=== PATIENT | male | born 1975 | race African-American/Black ===

== ENCOUNTER 2024-03-01 15:36 | Inpatient (IN) | payer MEDICAID ==
[~2024-03-01] VITALS: Ht 180.3 cm; Wt 113.4 kg
[2024-03-01] MEDS ORDERED: HALOPERIDOL 5 MG TABLET PO PRN (15:45)
[2024-03-01 18:33] VITALS: BP 145/89; PULSE 87; RESP 18; TEMP 98; O2SAT 98
[2024-03-01 20:33] VITALS: BP 130/80; PULSE 90; RESP 18; TEMP 98.8; O2SAT 95
[2024-03-01] MEDS: PNEUMOCOCCAL VACCINE POLYVALENT 0.5 ML SYRINGE [PPSV23] IM. ONE (21:00)
[2024-03-01] MEDS: ATORVASTATIN CALCIUM 20 MG TABLET PO SCH (21:22)
[2024-03-02] MEDS: LORazepam 2 MG TABLET PO PRN (04:41)
[2024-03-02 09:01] VITALS: BP 117/63; PULSE 77; RESP 18; TEMP 97.6; O2SAT 95
[2024-03-02] MEDS: HYDROCHLOROTHIAZIDE 25 MG TABLET PO SCH (09:58)
[2024-03-02] MEDS: CLOPIDOGREL BISULFATE 75 MG TABLET PO SCH (09:58)
[2024-03-02 11:08] LABS: BASOPHILS % (AUTO) 0.8 % (0.0-2.0); EOSINOPHILS % (AUTO) 2.1 % (1.0-6.0); HEMATOCRIT 40.9 % (41-53); HEMOGLOBIN 13.4 g/dL (13.5-17.5); LYMPHOCYTES # (AUTO) 1.8 K/uL (1.0-4.8); LYMPHOCYTES % (AUTO) 29.1 % (22.0-44.0); MEAN CORPUSCULAR HEMOGLOBIN 29.9 pg (26.0-34.0); MEAN CORPUSCULAR HGB CONC 32.7 G/dL (31.0-37.0); MEAN CORPUSCULAR VOLUME 91 fL (80-100); MONOCYTES # (AUTO) 0.5 K/uL (0.1-1.0); MONOCYTES % (AUTO) 7.9 % (2.0-9.0); NEUTROPHILS # (AUTO) 3.7 K/uL (1.8-7.7); NEUTROPHILS % (AUTO) 60.1 % (40.0-70.0); PLATELET COUNT (AUTO) 193 K/uL (150-450); RED BLOOD CELL COUNT(AUTO) 4.47 MIL/uL (4.50-5.90); RED CELL DISTRIBUTION WIDTH 13.2 % (11.5-14.5); WHITE BLOOD COUNT (AUTO) 6.1 K/uL (4.5-11.0)
[2024-03-02 12:10] LABS: ALANINE AMINOTRANSFERASE 20 U/L (12-78); ALBUMIN 3.1 g/dL (3.4-5.0); ALKALINE PHOSPHATASE 64 U/L (46-116); ANION GAP 3 mmol/L (8-16); ASPARTATE AMINOTRANSFERASE 11 U/L (15-37); BILIRUBIN,TOTAL 0.4 mg/dL (0.1-1.0); CALCIUM, TOTAL 8.7 mg/dL (8.8-10.5); CARBON DIOXIDE 33 mmol/L (22-29); CHLORIDE 104 mmol/L (98-107); CHOL/HDL RATIO 3.4 (4.2-7.3); CHOLESTEROL 185 mg/dL (131-200); CREATININE 0.87 mg/dL (0.60-1.30); FREE T4 (FREE THYROXINE) 1.01 ng/dL (0.76-1.46); GLOMERULAR FILTR. RATE CALC > 60 mL/min (>60); GLUCOSE,RANDOM 104 mg/dL (70-110); HDL CHOLESTEROL 54 mg/dL (40-60); LDL CHOL (CALC.) 114 mg/dL (0-130); POTASSIUM 3.6 mmol/L (3.5-5.1); SODIUM SERUM 140 mmol/L (136-145); T4 (THYROXINE) 6.2 mcg/dL (4.7-13.3); THYROID STIMULATING HORMONE 1.16 uIU/mL (0.36-3.74); TOTAL PROTEIN, SERUM 6.7 g/dL (6.4-8.2); TRIGLYCERIDES 87 mg/dL (15-150); UREA NITROGEN, BLOOD 15 mg/dL (7-18)
[2024-03-02] MEDS ORDERED: MAGNESIUM HYDROXIDE SUSPENSION 30 ML UDCUP PO PRN (14:30)
[2024-03-02] MEDS ORDERED: CloNIDine HCL 0.1 MG TABLET PO PRN (14:30)
[2024-03-02] MEDS ORDERED: MAG HYDROX/ALUMINUM HYD/SIMETH ES 30 ML SUSPENSION UDCUP PO PRN (14:30)
[2024-03-02] MEDS ORDERED: ALBUTEROL SULFATE HFA 90 MCG/PUFF 8 GM INHALER IH PRN (14:30)
[2024-03-02] MEDS ORDERED: GuaiFENesin/D-METHORPHAN [SUGAR-FREE] 200-20MG/10 ML SYRUP UDCUP PO PRN (14:30)
[2024-03-02] MEDS ORDERED: IBUPROFEN 400 MG TABLET PO PRN (14:30)
[2024-03-02] MEDS ORDERED: LOPERAMIDE HCL 2 MG CAPSULE PO PRN (14:30)
[2024-03-02] MEDS ORDERED: NICOTINE 14 MG/24 HOUR PATCH TD PRN (14:30)
[2024-03-02] MEDS ORDERED: PETROLATUM,WHITE 28 GM JELLY TP PRN (14:30)
[2024-03-02] MEDS ORDERED: ONDANSETRON HCL 4 MG TABLET PO PRN (14:30)
[2024-03-02] MEDS: LURASIDONE HCL 80 MG TABLET PO SCH (16:22)
[2024-03-02] MEDS: HydrOXYzine PAMOATE 50 MG CAPSULE PO PRN (18:55)
[2024-03-02] MEDS: ACETAMINOPHEN 325 MG TABLET PO PRN (18:55)
[2024-03-02 20:15] VITALS: BP 119/66; PULSE 81; RESP 18; TEMP 98
[2024-03-02] MEDS: TraZODone HCL 100 MG TABLET PO SCH (21:02)
[2024-03-03 08:19] LABS: HEMOGLOBIN A1C 5.8 % (3.8-5.6)
[2024-03-03 08:55] LABS: CHOL/HDL RATIO 3.2 (4.2-7.3); THYROID STIMULATING HORMONE 1.18 uIU/mL (0.36-3.74)
[2024-03-03 09:04] VITALS: BP 109/70; PULSE 69; RESP 19; TEMP 97.6; O2SAT 97
[2024-03-03 20:00] VITALS: BP 110/61; PULSE 78; RESP 16; TEMP 97.9; O2SAT 96
[2024-03-04 08:25] LABS: APPEARANCE,URINE CLEAR (CLEAR); BILIRUBIN,URINE NEGATIVE (NEGATIVE); COLOR,URINE LIGHT YELLOW (YELLOW); GLUCOSE, URINE (UA) NEGATIVE (NEGATIVE); KETONES,URINE NEGATIVE (NEGATIVE); LEUKOCYTE ESTERASE ,URINE NEGATIVE (NEGATIVE); NITRATE,URINE NEGATIVE (NEGATIVE); OCCULT BLOOD,URINE NEGATIVE (NEGATIVE); PROTEIN,URINE NEGATIVE (NEGATIVE); SPECIFIC GRAVITIY, URINE 1.015 (1.003-1.030); UROBILINOGEN,URINE <=1.0 mg/dL (<=1.0)
[2024-03-04 08:32] LABS: ALCOHOL, URINE DRUG SCREEN NEGATIVE (NEGATIVE); AMPHET/METH SCREEN,URINE NEGATIVE (NEGATIVE); BARBITURATE SCREEN, URINE NEGATIVE (NEGATIVE); BENZODIAZEPINES SCREEN,URINE NEGATIVE (NEGATIVE); CANNABINOID SCREEN,URINE NEGATIVE (NEGATIVE); COCAINE SCREEN,URINE NEGATIVE (NEGATIVE); METHADONE SCREEN, URINE NEGATIVE (NEGATIVE); OPIATE SCREEN,URINE NEGATIVE (NEGATIVE); PHENCYCLIDINE SCREEN,URINE NEGATIVE (NEGATIVE)
[2024-03-04 09:07] VITALS: BP 106/55; PULSE 70; RESP 17; TEMP 97.8; O2SAT 95
[2024-03-04 09:36] VITALS: BP 115/72; PULSE 81
[2024-03-04 20:38] VITALS: BP 107/60; PULSE 73; RESP 18; TEMP 97.8; O2SAT 96
[2024-03-05 08:49] VITALS: BP 118/73; PULSE 78; RESP 18; TEMP 97.9; O2SAT 97
[2024-03-05 20:56] VITALS: BP 143/94; PULSE 75; RESP 16; TEMP 97.8; O2SAT 95
[2024-03-06] MEDS: ZOLPIDEM TARTRATE 10 MG TABLET PO PRN (02:23)
[2024-03-06 17:58] VITALS: BP 126/84; PULSE 78; RESP 18; TEMP 98; O2SAT 95
[2024-03-06 20:50] VITALS: BP 126/84; PULSE 70; RESP 16; TEMP 98.1; O2SAT 97
[2024-03-07 08:38] VITALS: BP 116/61; PULSE 80; RESP 18; TEMP 97.7; O2SAT 96
[2024-03-07 20:19] VITALS: BP 124/78; PULSE 74; RESP 20; TEMP 98.2; O2SAT 95
[2024-03-07 20:44] VITALS: RESP 20
[2024-03-07 23:08] VITALS: RESP 15
[2024-03-08 09:14] VITALS: BP 113/63; PULSE 70; RESP 17; TEMP 97.9; O2SAT 97
[2024-03-08 20:00] VITALS: BP 142/87; PULSE 79; RESP 16; TEMP 97.2; O2SAT 97
[2024-03-09 09:02] VITALS: BP 104/61; PULSE 80; RESP 18; TEMP 97.2; O2SAT 96
[2024-03-09 21:15] VITALS: BP 149/107; PULSE 92; RESP 18; TEMP 97.3; O2SAT 92
[2024-03-10] MEDS: DOCUSATE SODIUM 100 MG CAPSULE PO PRN (09:01)
[2024-03-10 09:31] VITALS: BP 140/91; PULSE 76; RESP 18; TEMP 96.7; O2SAT 95
[2024-03-10 20:50] VITALS: BP 138/91; PULSE 80; RESP 19; TEMP 97.6; O2SAT 97
[2024-03-11 10:08] VITALS: BP 118/72; PULSE 77; RESP 18; TEMP 97.7; O2SAT 95
[2024-03-11] MEDS ORDERED: HYDR25TA PO (11:52)
[2024-03-11] MEDS ORDERED: LURA80TA2 PO (11:52)
[2024-03-11] MEDS ORDERED: ATOR20TA65 PO (11:52)
[2024-03-11] MEDS ORDERED: TRAZ-257 PO (11:52)
[2024-03-11] MEDS ORDERED: CLOP75TA60 PO (11:52)
== END 2024-03-11 13:30 | disposition home or self-care (01) | DRG 753 ==
LOC: B2S 15:49
PROVIDERS: ADMIT Psychiatry & Neurology Psychiatry; ATTEND Psychiatry & Neurology Psychiatry
PROC: GZHZZZZ Group Psychotherapy (ICD-10-PCS; principal; 2024-03-02)
PROC: GZ52ZZZ Individual Psychotherapy, Cognitive (ICD-10-PCS; 2024-03-02)
PROC: GZ56ZZZ Individual Psychotherapy, Supportive (ICD-10-PCS; 2024-03-02)
DX: F31.4 Bipolar disorder, current episode depressed, severe, without psychotic features (principal); R45.851 Suicidal ideations; E78.5 Hyperlipidemia, unspecified; I10 Essential (primary) hypertension; F10.10 Alcohol abuse, uncomplicated; G47.00 Insomnia, unspecified; Z79.899 Other long term (current) drug therapy; Z88.8 Allergy status to other drugs, medicaments and biological substances
CPT/HCPCS: 80053; 80061; 80307; 81003; 83036; 84436; 84439; 84443; 85025; 86592